=== PATIENT | female | born 1975 | race American Indian/Alaskan Native ===

== ENCOUNTER 2017-07-05 12:15 | Emergency (ER) | payer OTHER ==
[2017-07-05 12:42] VITALS: BP 139/87
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
[2017-07-05] MEDS ORDERED: MOTRIN PO ONE (15:45)
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
== END 2017-07-05 17:38 | disposition home or self-care (01) ==
LOC: ED 12:15
DX: S13.4XXA Sprain of ligaments of cervical spine, initial encounter (principal); S39.012A Strain of muscle, fascia and tendon of lower back, initial encounter; V87.7XXA Person injured in collision between other specified motor vehicles (traffic), initial encounter; Y93.89 Activity, other specified; Y99.8 Other external cause status; Y92.410 Unspecified street and highway as the place of occurrence of the external cause
CPT/HCPCS: 72040; 72100; 99283